=== PATIENT | male | born 1965 | race Two or more races ===

== ENCOUNTER 2020-10-13 06:21 | Outpatient (CLI) | payer OTHER | END 2020-10-13 06:22 | disposition home or self-care (01) | LOC: LAB 06:21 | PROVIDERS: ATTEND Internal Medicine Hematology & Oncology | DX: D50.8 Other iron deficiency anemias (principal); R79.89 Other specified abnormal findings of blood chemistry; K76.89 Other specified diseases of liver; R74.02 Elevation of levels of lactic acid dehydrogenase [LDH]; I10 Essential (primary) hypertension; D51.1 Vitamin B12 deficiency anemia due to selective vitamin B12 malabsorption with proteinuria; D51.0 Vitamin B12 deficiency anemia due to intrinsic factor deficiency; E03.8 Other specified hypothyroidism; E06.3 Autoimmune thyroiditis; D69.49 Other primary thrombocytopenia; E78.2 Mixed hyperlipidemia ==

== ENCOUNTER 2023-09-12 14:01 | Outpatient (CLI) | payer OTHER | END 2023-09-12 14:03 | disposition home or self-care (01) | LOC: SONOGRAMA 14:01 | PROVIDERS: ATTEND Pathology Anatomic Pathology & Clinical Pathology | DX: C07 Malignant neoplasm of parotid gland (principal); C08.9 Malignant neoplasm of major salivary gland, unspecified; C77.0 Secondary and unspecified malignant neoplasm of lymph nodes of head, face and neck; R22.1 Localized swelling, mass and lump, neck ==